=== PATIENT | male | born 1970 | race Caucasian/White ===

== ENCOUNTER 2016-12-19 22:04 | Emergency (ER) | payer BC ==
[~2016-12-19] VITALS: Ht 182.9 cm; Wt 111.4 kg
[~2016-12-19 22:04] MED LIST: ADVAIR DISKUS1 DS1 IH; CELEXA10 MG PO; CELEXA40 MG PO; CIPRO 500MG TA500 MG PO; CITALOPRAM10 MG PO; CO Q-1010 M1 PO; CO Q-1010 MG PO; COLACE 100100 MG/CAP PO; CRESTOR20 MG PO; FLAGYL500 MG PO; MICARDIS HCT 251 TAB PO; MULTI VITAMINS1 TAB PO; NORCO 325 MG-51 TAB PO; PERCOCET 325 MG1 TA2 PO; PRILOSEC 20MG20 MG PO; SINGULAIR10 MG PO; VITAMIN D; zyrtec PO
[2016-12-19 22:06] VITALS: BP 162/87; TEMP 98.9
[2016-12-20 00:05] VITALS: PULSE 75
== END 2016-12-20 00:05 | disposition home or self-care (01) ==
LOC: COL.ER 22:04
DX: S61.112A Laceration without foreign body of left thumb with damage to nail, initial encounter (principal); W26.0XXA Contact with knife, initial encounter; Y92.009 Unspecified place in unspecified non-institutional (private) residence as the place of occurrence of the external cause; Z23 Encounter for immunization; I10 Essential (primary) hypertension

== ENCOUNTER 2016-12-31 17:05 | Emergency (ER) | payer BC ==
[2016-12-31 17:14] VITALS: BP 123/64; PULSE 80; TEMP 98.8
== END 2016-12-31 17:30 | disposition home or self-care (01) ==
LOC: COL.ER 17:05
DX: S61.012D Laceration without foreign body of left thumb without damage to nail, subsequent encounter (principal); W45.8XXD Other foreign body or object entering through skin, subsequent encounter